=== PATIENT | male | born 1980 | race Caucasian/White ===

== ENCOUNTER 2017-03-10 19:58 | Emergency (ER) | payer SELFPAY ==
--- NOTE | ~2017-03-10 | ER ---
PATIENT'S NAME: [facility] AGE: 36 Y [address] ROOM: [place] [id number] LOCATION: [facility] ADMIT DATE: 03/10/2017 ER/Outpatient Report DISCHARGE DATE: 03/10/2017 FAMILY PHYSICIAN: PHYSICIAN, NO ATTENDING PHYSICIAN: Luis Antonio Mays Time of Arrival: 1999. Time of Exam: 2006. CHIEF COMPLAINT: Back pain. HISTORY OF PRESENT ILLNESS: The patient states on Tuesday03/07/2017 he helped a friend put in a fence. He was digging holes and when he bent down he felt a pop in his lower back and has had some generalized right lower back pain ever since. He states he has had back problems before but has never had to have any surgeries. Denies any change in his bowel or bladder pattern. ALLERGIES: ON HIS CHART AND WERE REVIEWED BY ME. MEDICATIONS: On his chart and were reviewed by me. PAST MEDICAL HISTORY: Previous back injury. PAST SURGERIES: Surgery to his toe. SOCIAL HISTORY: Denies use of tobacco or alcohol. Smokes marijuana on an occasional basis. REVIEW OF SYSTEMS: Negative other than those mentioned in the HPI. PHYSICAL EXAMINATION: VITAL SIGNS: He weighed 103.3 kg. Blood pressure is 155/96, pulse of 83, respirations 16, temperature of 97.7, O2 saturation was 95% on room air. GENERAL: He is awake, alert, and oriented x4. SKIN: [place], warm, and dry. RESPIRATIONS: Even and nonlabored. Lung sounds are clear throughout. HEART: Regular rate and rhythm. EXTREMITIES: He is tender in the right lower back area. Walks with steady even gait. PATIENT'S NAME: WILLIAM [facility] AGE: 36 Y [address] ROOM: [place] [address] LOCATION: [facility] ADMIT DATE: 03/10/2017 ER/Outpatient Report DISCHARGE DATE: 03/10/2017 FAMILY PHYSICIAN: PHYSICIAN, NO ATTENDING PHYSICIAN: Luis Antonio Mays DIAGNOSTIC DATA: X-ray of his back was completed and reviewed with Dr. Mays. No acute bony abnormality is seen. IMPRESSION: Back pain. PLAN: Home, rest, ice or heat to the area. Prescription was given for [place] and Flexeril. He is to follow up with his primary provider in the next 2 to 3 days if symptoms persist or worsen. He verbalized understanding. VIRGINIE HERNANDEZ APRN FOR MD [facility]ANCO GARCIA/gregorio /[id number] d: 03/11/174 t: 03/11/17 1810, OUTPATIENT REPORT
== END 2017-03-10 21:02 | disposition disaster alternative care site (69) ==
LOC: GACC 19:58
DX: M54.5 Low back pain (principal); F12.10 Cannabis abuse, uncomplicated; Z98.890 Other specified postprocedural states